=== PATIENT | female | born 1955 | race Caucasian/White ===

== ENCOUNTER 2020-03-24 14:00 | Outpatient (CLI) | payer BC | END 2020-03-24 23:59 | disposition home or self-care (01) | LOC: D.MAMMO 14:00 | PROVIDERS: ATTEND Family Medicine | DX: Z12.31 Encounter for screening mammogram for malignant neoplasm of breast (principal) ==

== ENCOUNTER → 2020-09-10 13:08 | Outpatient (CLI) | payer BC | END | disposition home or self-care (01) | LOC: D.MRI 13:08 | PROVIDERS: ATTEND Family Medicine | DX: M54.12 Radiculopathy, cervical region (principal) ==